=== PATIENT | female | born 1975 | race African-American/Black ===

== ENCOUNTER 2024-03-05 13:24 | Emergency (ER) | payer BC, MEDICAID ==
[~2024-03-05] VITALS: Ht 170.2 cm; Wt 121.0 kg
[2024-03-05 13:36] VITALS: O2SAT 98
[2024-03-05] MEDS: SODIUM CHLORIDE 0.9% 1,000 ML IV ONE (14:00)
[2024-03-05] MEDS: KETOROLAC 30MG/ML VIAL IV ONE (14:00)
[2024-03-05] MEDS: LORAZEPAM 2MG/ML INJ IV ONE (14:00)
[2024-03-05 14:56] LABS: BASOPHILS % 0.5 % (0.0-2.0); EOSINOPHILS % 0.2 % (0.0-5.0); HEMATOCRIT. 36.1 % (36.0-48.0); HEMOGLOBIN. 11.9 g/dL (12.0-16.0); LYMPHOCYTES % 24.3 % (20.0-50.0); MEAN CORPUSCULAR HEMOGLOBIN 27.7 pg (28.0-32.0); MEAN CORPUSCULAR HGB CONC 32.9 g/dL (31.0-37.0); MEAN CORPUSCULAR VOLUME 84.3 fL (81.0-99.0); MEAN PLATELET VOLUME 8.3 fl (7.4-10.4); PLATELET 293 x1000/uL (130-400); RED BLOOD CELL COUNT 4.28 mill/uL (4.2-5.4); RED CELL DISTRIBUTION WIDTH 15.8 % (11.6-14.6); WHITE BLOOD COUNT 6.5 x1000/uL (4.5-11.0)
[2024-03-05 15:02] LABS: CHLORIDE 103 mEq/L (98-107); SODIUM 139 mEq/L (136-145)
[2024-03-05 15:03] LABS: CALCIUM 9.3 mg/dL (8.7-10.4); CARBON DIOXIDE 28 mEq/L (21-32)
[2024-03-05 15:08] LABS: CREATININE 0.8 mg/dL (0.6-1.0); GLUCOSE 107 mg/dL (70-105); UREA NITROGEN BLOOD 10 mg/dL (9-23)
[2024-03-05 15:10] LABS: ALANINE AMINOTRANSFERASE 8 IU/L (10-49); ALBUMIN 4.4 g/dL (3.2-4.8); ASPARTATE AMINOTRANSFERASE 12 IU/L (<34); BILIRUBIN DIRECT 0.2 mg/dL (<=3.0); BILIRUBIN TOTAL 0.8 mg/dL (0.1-1.0)
[2024-03-05 15:38] LABS: TROPONIN I HIGH SENSITIVITY < 4 ng/L (3.0-34)
[2024-03-05 15:41] LABS: HCG SCREEN NEGATIVE
[2024-03-05] MEDS ORDERED: IBUP-2028 MT (17:23)
[2024-03-05 17:34] VITALS: TEMP 36.89184
[2024-03-05 18:57] VITALS: BP 137/77; PULSE 82; RESP 16; O2SAT 100
== END 2024-03-05 19:01 | disposition home or self-care (01) ==
LOC: ER 13:24
DX: R51.9 Headache, unspecified (principal); R00.0 Tachycardia, unspecified; I10 Essential (primary) hypertension; E78.00 Pure hypercholesterolemia, unspecified; E66.01 Morbid (severe) obesity due to excess calories; Z88.0 Allergy status to penicillin; Z88.8 Allergy status to other drugs, medicaments and biological substances
CPT/HCPCS: 80076; 80048; 84703; 85025; 87040; 84484; 36415; 84145; 93005; 96361; 96374; 96375; 99285; J1885; J2060; J7030; Z7610 ×2